=== PATIENT | male | born 1975 | race Caucasian/White ===

== ENCOUNTER 2016-07-26 12:25 | Day surgery (SDC) | payer OTHER ==
[~2016-07-26] VITALS: Ht 177.8 cm; Wt 108.9 kg
[~2016-07-26 12:25] MED LIST: DULO20CA PO; GABA-502 PO; NOMED; Sodium Chloride LOK Flush 10 mL Syringe IV PRN; fentaNYL-PF 50 mCg/mL 2 mL Inj IVPUSH PRN
[2016-07-26] MEDS ORDERED: Iohexol 240 mg/mL 10 mL Inj ONE (12:26)
[2016-07-26] MEDS ORDERED: MethylprednisoLONE Depot 80 mg/mL Inj ONE (12:26)
[2016-07-26 13:01] VITALS: BP 128/89; PULSE 69; O2SAT 96
[2016-07-26] MEDS: 0.9% Sodium Chloride 1,000 ML IV SCH ×2 (13:06→13:30)
[2016-07-26 13:32] VITALS: BP 140/72; PULSE 74; RESP 16; O2SAT 96
[2016-07-26 13:40] VITALS: BP 124/77; PULSE 75; RESP 16; O2SAT 98
[2016-07-26 14:00] VITALS: BP 152/90; PULSE 75; RESP 16; O2SAT 98
--- NOTE | 2016-07-26 15:37 | PCM.PROC ---
Procedure Note Date of Service: Jul 26, 2016 Pre Procedure Diagnosis: PROCEDURE: Lumbar Interlaminar epidural steroid injection. LEFT paramedian L5- S1 ASA / ANTI-COAGULATION . No asa x 7 days. PRE-PROCEDURE DIAGNOSIS: Lumbar radiculopathy POST-PROCEDURE DIAGNOSIS: same INDICATION: 40-year-old patient with LEFT leg pain consistent with lumbar radiculopathy PERFORMED BY: Omi Spence MD DESCRIPTION OF PROCEDURE: Patient was met in the holding area. Consent was signed, site was confirmed and all questions were answered. Patient was taken to the procedure suite and placed prone on the procedure table. Area was prepped and draped in sterile fashion. Local anesthesia with 1% lidocaine was injected. An 18-gauge Touhy needle was advanced toward the interlaminar space using fluoroscopic guidance after optimizing the AP view. A loss of resistance syringe was attached as we approached the epidural space in the lateral view. After [id number] was obtained, radioopaque contrast was injected under live fluro which confirmed epidural placement without intravascular uptake. Then , 80 mg depomedrol was injected without difficulty. ANESTHESIA: Local. 2 mg Versed EBL: None. No Blood Products Used COMPLICATIONS: None SPECIMENS: None POST-PROCEDURE DISPOSITION: Patient was returned to the holding area in stable condition. They were discharged home when all discharge criteria were met. Evaluation/Physical Exam before discharge revealed: DISCHARGE MEDICATIONS: FOLLOW UP: Return to clinic in 4-6 weeks. mOi Spence MD * Pain Management * Anesthesiology .ED: Y: Patient given care and follow up instructions Omi Spence MD Jul 26, 2016 15:36
== END 2016-07-26 23:59 | disposition home or self-care (01) ==
LOC: END 12:25
PROVIDERS: ATTEND Anesthesiology Pain Medicine
DX: M54.16 Radiculopathy, lumbar region (principal); M54.42 Lumbago with sciatica, left side; F43.10 Post-traumatic stress disorder, unspecified
CPT/HCPCS: 62323; G0500; J1040; J2250; J3010; J7030

== ENCOUNTER 2016-11-15 13:20 | Day surgery (SDC) | payer OTHER ==
[~2016-11-15] VITALS: Ht 177.8 cm; Wt 111.1 kg
[~2016-11-15 13:20] MED LIST changes: -DULO20CA PO; -GABA-502 PO; -Sodium Chloride LOK Flush 10 mL Syringe IV PRN
[2016-11-15] MEDS ORDERED: Iohexol 240 mg/mL 10 mL Inj ONE (13:21)
[2016-11-15] MEDS ORDERED: MethylprednisoLONE Depot 80 mg/mL Inj ONE (13:21)
[2016-11-15 14:01] VITALS: BP 134/98; PULSE 78; RESP 16; O2SAT 96
[2016-11-15 14:27] VITALS: BP 146/98; PULSE 80; RESP 16; O2SAT 95
[2016-11-15 14:35] VITALS: BP 135/69; PULSE 81; RESP 16; O2SAT 97
--- NOTE | 2016-11-15 15:56 | PCM.PROC ---
Procedure Note Date of Service: Nov 15, 2016 Pre Procedure Diagnosis: PROCEDURE: Lumbar Interlaminar epidural steroid injection. LEFT paramedian L5- S1 ASA / ANTI-COAGULATION . No asa x 7 days. PRE-PROCEDURE DIAGNOSIS: Lumbar radiculopathy POST-PROCEDURE DIAGNOSIS: same INDICATION: 41-year-old patient with LEFT leg pain consistent with lumbar radiculopathy PERFORMED BY: Omi Spence MD DESCRIPTION OF PROCEDURE: Patient was met in the holding area. Consent was signed, site was confirmed and all questions were answered. Patient was taken to the procedure suite and placed prone on the procedure table. Area was prepped and draped in sterile fashion. Local anesthesia with 1% lidocaine was injected. An 18-gauge Touhy needle was advanced toward the interlaminar space using fluoroscopic guidance after optimizing the AP view. A loss of resistance syringe was attached as we approached the epidural space in the lateral view. After [id number] was obtained, radioopaque contrast was injected under live fluro which confirmed epidural placement without intravascular uptake. Then , 80 mg depomedrol was injected without difficulty. ANESTHESIA: Local. 2 mg Versed. 100 g fentanyl. EBL: None. No Blood Products Used COMPLICATIONS: None SPECIMENS: None POST-PROCEDURE DISPOSITION: Patient was returned to the holding area in stable condition. They were discharged home when all discharge criteria were met. Evaluation/Physical Exam before discharge revealed: DISCHARGE MEDICATIONS: FOLLOW UP: Keep scheduled follow-up Omi Spence MD * Pain Management * Anesthesiology .ED: Y: Patient given care and follow up instructions Omi Spence MD Nov 15, 2016 15:56
== END 2016-11-15 23:59 | disposition home or self-care (01) ==
LOC: END 13:20
PROVIDERS: ATTEND Anesthesiology Pain Medicine
DX: M54.16 Radiculopathy, lumbar region (principal); F43.10 Post-traumatic stress disorder, unspecified
CPT/HCPCS: 62323; G0500; J1040; J2250; J3010; J7030